=== PATIENT | female | born 1970 | race Caucasian/White ===

== ENCOUNTER 2019-03-25 10:19 | Observation (INO) | payer OTHER ==
--- NOTE | 2019-03-25 05:52 | PDGENHP ---
History and Physical History and Physical: Assessment and Plan: 1. Endometriosis of pelvic peritoneum Tuyet has symptoms of persistent endometriosis. 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 We reviewed all conservative and surgical options. She is extremely tired of how this is controlled her life. At the end of our discussion she wishes to schedule surgical intervention. This will be a robotic hysterectomy with excision of all lesions of endometriosis. I would not be surprised if she has persistent disease on the right ovary given the photos of her right endometrioma. We discussed the pros and cons of removing her remaining ovary. She understands my earliest availability in [place] would be March and in [place] is May. She will return for a preoperative appointment. 2. Pelvic pain 3. Intramural leiomyoma of uterus Subjective: Patient ID: Tuyet Pathak is a 48 y.o. female who presents to [facility] [place] for endometriosis. HOLLAND Benz is a 48-year-old 0 woman who lives in [place]. She has a long history of endometriosis dating back to age 23 when she had her first laparoscopy. Her last surgery was in 2012 while living in [place]. She had her left tube and ovary removed. She thinks some endometriosis was ablated. She has operative photos which shows endometriosis concentrated mostly in the posterior cul-de-sac overlying the distal rectum and both uterosacral ligaments. She does have some in the anterior cul-de-sac as well as a right endometrioma. There were no photos taken after surgery that I can see. She also underwent an endometrial ablation at that time. Since then she has had almost daily pain which is a dull pelvic ache with occasional sharp pains in the left lower quadrant and rectum. She uses a heating pad and Tylenol for the pain. She has occasional dyschezia but no real dyspareunia. She has known uterine fibroids with 2 dominant fibroids measuring about 3-4 cm. She had a severe bout of pain in June and went to the emergency department where she underwent an ultrasound and CT scan. Her flow has been irregular since then. She has no hot flashes. She is extremely tired of the pain as it greatly interferes with the quality of her life. PastMedicalHistory Past Medical History: Diagnosis Date Allergy to pollen Anxiety Arthritis 2007 First noted in x-ray of foot Common migraine without aura Depression Mallory-Danlos syndrome, type 3 Endometriosis Eosinophilic esophagitis Esophageal reflux Fibromyalgia Fibromyalgia Lumbago Meniere disease Neutrophilic leukocytosis Varicella PastSurgicalHistory Past Surgical History: Procedure Laterality Date COLONOSCOPY 07/2015 ENDOMETRIAL ABLATION 2013 LAPAROSCOPY x3 OVARY REMOVAL Left SINUS SURGERY 04/2016 TONSILLECTOMY UPPER GASTROINTESTINAL ENDOSCOPY 07/2015 WISDOM TOOTH EXTRACTION CURRENT MEDICATIONS: Current Outpatient Medications Medication Sig acetaminophen (TYLENOL) 325 mg tablet Take 650 mg by mouth 3 times daily as needed. DULoxetine (CYMBALTA) [address] capsule TAKE 1 CAPSULE BY MOUTH EVERY DAY HYDROcodone-acetaminophen (NORCO) 5-325 mg Take 1 tablet by mouth every 6 hours as needed for Pain. This med has acetaminophen (APAP). promethazine (PHENERGAN) 25 mg tablet Take 1 tablet by mouth every 6 hours as needed. triamterene-hydrochlorothiazide 37.5-25 mg per capsule No current facility-administered medications for this visit. ALLERGIES: Prednisone; Erythromycin; and Zofran [ondansetron hcl (pf)] I have reviewed, verified and agree with the past medical, surgical, , family, social and ROS history as documented by the RN today. Objective: Vital Signs: Visit Vitals BP 104/68 Pulse 90 Temp 36.5 C (97.7 F) (Temporal) Resp 16 Ht 1.613 m (5' 3.5") Wt 79.4 kg (175 lb) SpO2 99% BMI 30.51 kg/m Physical Exam Gen: This is an alert, well developed woman in no distress. Neuro: She moves all extremities. Psych: She is appropriate, oriented, with normal affect. Neck: No thyroid enlargement, adenopathy, or tenderness. Lungs: Clear to ascultation, no wheezes or rales. Heart: Regular rate and rhythm without obvious murmurs. Abdomen: Soft, non-tender, without guarding, rebound, or masses. Extremities: No edema or cyanosis. Pelvic: Normal external genitalia. Non-gaping introitus, vagina without discharge, adequately estrogenized, no significant prolapse. Cervix without lesions or discharge. Adnexa tender without enlargement. Uterus is enlarged consistent with about a 14-week sized uterus. It extends laterally. She has an approximately 5 mm nodule in the posterior cul-de-sac which is is exquisitely tender. Both uterosacral ligaments are quite tender as well as the anterior and posterior cervix and uterus. DATA: I have reviewed the pertinent medical records. TIME/COMMUNICATION: I personally spent a total of 60 minutes. Of that 50 minutes was counseling/ coordination of patient's care. See my note above for details. Eugene Archibald MD Board Certified Female Pelvic Medicine and Reconstructive Surgery Director of Minimally Invasive Gynecologic Surgery, [facility] Surgeon in Minimally Invasive Gynecologic Surgery [facility] Surgeon in Robotic Surgery
--- NOTE | 2019-03-25 10:49 | PDANEPAE ---
ANE History of Present Illness Total abdominal hysterectomy with endometriosis ablation ANE Past Medical History - Cardiovascular History Hx Hypertension: No Hx Arrhythmias: No Hx Chest Pain: No Hx Coronary Artery / Peripheral Vascular Disease: No Hx CHF / Valvular Disease: No Hx Palpitations: No Cardiovascular History Comment: BP runs low. triamterene not for BP issues, meniere's disease. small mitral prolapse - Pulmonary History Hx COPD: No Hx Asthma/Reactive Airway Disease: No Hx Recent Upper Respiratory Infection: No Hx Oxygen in Use at Home: No Hx Sleep Apnea: No Sleep Apnea Screening Result - Last Documented: Negative - Neurologic History Hx Cerebrovascular Accident: No Hx Seizures: No Hx Dementia: No - Endocrine History Hx Diabetes: No - Renal History Hx Renal Disorders: No - Liver History Hx Hepatic Disorders: No - Neurological & Psychiatric Hx Hx Neurological and Psychiatric Disorders: No Neurological / Psychiatric History Comment: numb area behind right leg. depression/anxiety - Cancer History Hx Cancer: No - Congenital Disorder History Hx Congenital Disorders: Yes Congenital History Comment: sarah morrell - GI History Hx Gastrointestinal Disorders: Yes Gastrointestinal History Comment: acid reflux/gerd. esophagitis - Other Health History Other Health History: meniere's disease. right arm scab. low ferritin levels IV infusions 07/19. bruises easily - Chronic Pain History Chronic Pain: Yes (lower back legs) - Surgical History Prior Surgeries: lap endometrosis 2013. 2 prior endometriosis lap sx 1999/ 1992. 2015 sinus sx ANE Review of Systems Review of systems is: negative Review of Systems: - Exercise capacity METS (RN): 4 METS ANE Patient History - Allergies Allergies/Adverse Reactions: erythromycin base Allergy (Verified 03/10/19 11:24) Vomiting fluconazole [From Diflucan] Allergy (Verified 03/10/19 11:24) Vomiting NSAIDS (Non-Steroidal Anti-Inflamma Allergy (Verified 03/10/19 11:22) GI UPSET ondansetron Allergy (Verified 03/11/19 15:01) Other-Enter Comments - Home Medications Home medications: home medication list seen and reviewed Home Medications: Acetaminophen [Tylenol ES 500 mg (*)] 1,000 mg PO DAILY PRN 03/10/19 [Last Taken Unknown] DULoxetine [Cymbalta 60 MG (*)] 60 mg PO DAILY 03/10/19 [Last Taken Unknown] Herbals/Supplements -Info Only 1 ea PO DAILY 03/10/19 [Last Taken Unknown] Multivitamins [Multivitamin (*)] 3 each PO DAILY 03/10/19 [Last Taken Unknown] Triamterene/Hydrochlorothiazid [Triamterene-Hctz 37.5-25 mg Tb] 1 each PO DAILY 03/10/19 [Last Taken Unknown] - NPO status NPO Status: no food or drink >8 hours - Anes Hx Anes Hx: no prior problems - Smoking Hx Smoking Status: Never smoked - Family Anes Hx Family Anes Hx: none Family Hx Anesthesia Complications: grandmother with same issues ANE Labs/Vital Signs - Vital Signs Vital Signs: reviewed preoperatively; see RN documention for details Height: 160.02 cm Weight: 78.471 kg ANE Physical Exam - Airway Neck exam: FROM Mallampati Score: Class 2 Mouth exam: normal dental/mouth exam - Pulmonary Pulmonary: no respiratory distress - Cardiovascular Cardiovascular: regular rate and rhythym - ASA Status ASA Status: II ANE Anesthesia Plan Anesthesia Plan: general endotracheal anesthesia
[2019-03-25] MEDS ORDERED: ceFAZolin 2 GM/DEXTROSE 100 ML IV ONE (10:55)
[2019-03-25] MEDS ORDERED: LR 1,000 ML IV ONE (10:55)
[2019-03-25] MEDS ORDERED: GABAPENTIN 300 MG CAP PO ONE (10:55)
[2019-03-25] MEDS ORDERED: PHENAZOPYRIDINE HCL 200 MG TAB PO ONE (10:55)
[2019-03-25] MEDS ORDERED: ACETAMINOPHEN 500 MG TAB PO ONE (10:55)
[2019-03-25] MEDS ORDERED: LIDOCAINE 1% 2 ML INJ ID PRN (11:00)
--- NOTE | 2019-03-25 11:55 | PDHPUP ---
History & Physical Update H&P update statement: This history and physical update is based on an assessment of the patient which was completed after admission or registration (within 24 hours), but prior to the surgery/procedure. H&P update: H&P reviewed & patient examined, no change in patient's condition since H&P completed
[2019-03-25] MEDS ORDERED: SCOPOLAMINE HYDROBROMIDE 1 MG/3 DAYS PATCH TD SCH (12:00)
[2019-03-25] MEDS ORDERED: fentaNYL 250 MCG/5 ML INJ ONE (12:35)
[2019-03-25] MEDS ORDERED: LIDOCAINE 2% 100 MG/5 ML SYR ONE (12:35)
[2019-03-25] MEDS ORDERED: ONDANSETRON 4 MG/2 ML VIAL ONE (12:35)
[2019-03-25] MEDS ORDERED: ROCURONIUM 50 MG/5 ML VIAL ONE (12:35)
[2019-03-25] MEDS ORDERED: DEXAMETHASONE 4 MG/ML VIAL ONE ×2 (12:35→12:39)
[2019-03-25] MEDS ORDERED: PROPOFOL 200 MG/20 ML VIAL ONE ×3 (12:35→13:41)
[2019-03-25] MEDS ORDERED: BUPIVACAINE/EPI 0.5% 30 ML SDV ONE (12:36)
[2019-03-25] MEDS ORDERED: MEPERIDINE 25 MG/0.5 ML AMP IVP PRN (13:25)
[2019-03-25] MEDS ORDERED: HYDROCODONE/APAP 5/325 TAB PO PRN (13:25)
[2019-03-25] MEDS ORDERED: oxyCODONE IR 5 MG TAB PO PRN (13:25)
[2019-03-25] MEDS ORDERED: PROMETHAZINE HCL 25 MG/ML INJ IVP PRN (13:25)
[2019-03-25] MEDS ORDERED: NALOXONE HCL 0.4 MG/ML INJ IVP PRN (13:25)
[2019-03-25] MEDS ORDERED: PROMETHAZINE HCL 25 MG/ML INJ ONE (13:28)
[2019-03-25] MEDS ORDERED: SUGAMMADEX SODIUM 200 MG/2 ML VIAL IVP ONE (14:03)
--- NOTE | 2019-03-25 14:05 | POSTOPPROG ---
Post Op Note Date of Operation: 03/25/19 Surgeon: Eugene Archibald Hr Associate: Lynnette Kat Anesthesiologist: Babatunde Anesthesia: GET(General Endotracheal) Pre-op Diagnosis: Endometriosis, fibroids, menorrhagia Post-op Diagnosis: Same Procedure: Robotic hyst/RSO, encise endo, bilat ureterolyis Findings: No bladder or ureteral injury seen Inf/Abcess present in the surg proc area at time of surgery?: No EBL: Minimal Complications: None
[2019-03-25] MEDS ORDERED: OXYCODONE/APAP 5/325 TAB PO PRN (14:06)
[2019-03-25] MEDS ORDERED: HYDROmorphONE/DILAUDID 1 MG/ML INJ IVP PRN (14:06)
[2019-03-25] MEDS ORDERED: ONDANSETRON DISINTEGRATING 4 MG TAB PO PRN (14:07)
[2019-03-25] MEDS ORDERED: ONDANSETRON 4 MG/2 ML VIAL IVP PRN (14:07)
[2019-03-25] MEDS ORDERED: HYDROmorphONE/DILAUDID 1 MG/ML INJ ONE (14:21)
[2019-03-25] MEDS: fentaNYL 100 MCG/2 ML INJ IVP PRN ×2 (14:21→14:29)
[2019-03-25] MEDS ORDERED: fentaNYL 100 MCG/2 ML INJ ONE (14:21)
[2019-03-25] MEDS: HYDROmorphONE/DILAUDID 1 MG/ML INJ IVP PRN ×3 (14:27→15:05)
[2019-03-25] MEDS ORDERED: LR 1,000 ML IV SCH (14:30)
[2019-03-25] MEDS ORDERED: DIAZEPAM 10 MG/2 ML SYR ONE (15:03)
[2019-03-25] MEDS ORDERED: DIAZEPAM 10 MG/2 ML SYR IVP PRN (15:04)
[2019-03-25] MEDS: GABAPENTIN 100 MG CAP PO SCH (17:06)
--- NOTE | 2019-03-25 18:48 | GOP ---
[f rep st] OPERATIVE REPORT DATE OF OPERATION: 03/25/2019 SURGEON: Eugene Archibald MD PAPER RECLAIMING MACHINE OPERATOR: Lynnette Kat CFA. ANESTHESIA: General. PREOPERATIVE DIAGNOSIS: 1. Menorrhagia. 2. Dysmenorrhea. 3. Uterine fibroids. 4. Endometriosis. 5. Uterine prolapse. 6. Urinary frequency and urgency. POSTOPERATIVE DIAGNOSIS: 1. Menorrhagia. 2. Dysmenorrhea. 3. Uterine fibroids. 4. Endometriosis. 5. Uterine prolapse. 6. Urinary frequency and urgency. PROCEDURE PERFORMED: 1. Robotic-assisted total laparoscopic hysterectomy, right salpingo-oophorectomy. 2. Excision of endometriosis in anterior and posterior cul-de-sac, bilateral pelvic side mackey. 3. Bilateral ureterolysis. 4. Uterosacral ligament colpopexy. 5. Cystoscopy. FINDINGS: Within the upper abdomen. The diaphragms, liver, gallbladder, stomach and upper abdominal bowel were unremarkable. There was no evidence of endometriosis. Within the pelvis, there was endo metriosis in both the anterior and posterior cul-de-sacs, both pelvic sidewalls, as well as the right ovary. The uterus was enlarged with uterine fibroids. SPECIMENS: 1. Uterus, right tube and ovary. 1. Pelvic peritoneum with endometriosis. 2. ESTIMATED BLOOD LOSS: Scant. DESCRIPTION OF PROCEDURE: The patient was taken to the operating room. She was identified. General anesthesia was administered and found to be adequate. She was placed in the lithotomy position and prepared and draped in normal sterile fashion. A Ritter catheter was placed in her bladder. A VCare uterine manipulator was placed into the endometrial cavity and sutured to the cervix. An 8 mm infraumbilical incision was made with a scalpel. The Veress needle with the CO2 gas flowing was advanced into the peritoneal cavity. The abdomen was then insufflated with carbon dioxide gas. The 8 mm trocar followed by the laparoscope were then inserted. Two lateral ports placed in the righ t, 1 in the left under direct visualization. The anterior cul-de-sac was completely excised. The posterior cul-de-sac from the distal rectum up t o the cervix and laterally to the uterosacral ligaments was then completely excised. A bilateral ure terolysis was required given the endometriosis overlying both ureters. The peritoneum at the pelvic brims were incised. The ureters were gently dissected free and lateralized off the overlying periton eum and endometriosis from the pelvic brim all the way down to the bladder. Once this was accomplish ed, the entire pelvic sidewall peritoneum was completely excised. The anterior lip of the broad liga ment was incised across the cervix. The left uterine vasculature was then cauterized and transected medial to the left ureter. The right round ligament was divided. The anterior leaf of the broad lig ament was incised toward the bifurcation of right common iliac vessels. A window was created in the posterior leaf to skeletonize the infundibulopelvic vessels. They were then cauterized and transecte d. The right uterine vasculature was then cauterized and transected. The uterus was partially bival terry to aid in removal through the vagina. A circumferential colpotomy incision was then made with e hot ryan and all specimens were removed through the vagina. The vaginal cuff was closed with a running suture of 0 V-Loc 180. A bilateral uterosacral ligament c olpopexy was performed by attaching the lateral aspects of the vaginal cuff to the ipsilateral uteros acral ligaments near the coccygeal-sacrospinous ligament complexes. The pelvis was then irrigated wi sterile saline and hemostasis was present. The robot was then undocked. The skin was closed with 4-0 Monocryl. Cystoscopy was then performed. Both ureters had vigorous jets of urine. There was n o evidence of bladder, nor urethral injury seen. No sutures were seen within the bladder, nor urethr a. No obvious pathology was seen to account for the patient's urinary frequency and urgency other th an her peritoneal endometriosis on the bladder. Anesthesia was then reversed. The patient was taken to PACU awake, in stable condition. COMPLICATIONS: None. DISPOSITION: Patient stable to PACU. /[id number]/MODL
[2019-03-25] MEDS: HYDROCODONE/APAP 5/325 TAB PO PRN (19:14)
[2019-03-25] MEDS: KETOROLAC 30 MG/1 ML SDV IVP SCH (20:02)
[2019-03-26] MEDS: SIMETHICONE 80 MG TAB CHEW PO SCH ×2 (00:41→08:16)
[2019-03-26] MEDS: HYDROCODONE/APAP 5/325 TAB PO PRN ×2 (00:41→05:16)
[2019-03-26] MEDS: GABAPENTIN 100 MG CAP PO SCH ×2 (01:50→08:18)
[2019-03-26] MEDS: KETOROLAC 30 MG/1 ML SDV IVP SCH ×3 (01:50→12:07)
[2019-03-26] MEDS: DOCUSATE SODIUM 100 MG CAP PO SCH ×2 (02:04→08:16)
[2019-03-26 05:45] LABS: PLATELET COUNT 324 10^3/uL (150-400)
[2019-03-26 08:19] VITALS: BP 96/62
[2019-03-26] MEDS ORDERED: TRIAMTERENE/HCTZ 37.5/25 1 EACH TAB PO SCH (09:00)
--- NOTE | 2019-03-26 10:15 | GDS ---
[f rep st] DISCHARGE SUMMARY DISCHARGE DIAGNOSES: 1. Menorrhagia. 2. Dysmenorrhea. 3. Uterine fibroid. 4. Endometriosis. 5. Uterine prolapse. PROCEDURES: 1. Robotic-assisted total laparoscopic hysterectomy, right salpingo-oophorectomy. 2. Excision of endometriosis. 3. Bilateral ureterolysis. 4. Uterosacral ligament colpopexy. 5. Cystoscopy. HOSPITAL COURSE: The patient has a long history of heavy painful menses from uterine fibroids and en dometriosis. She was taken to the operating room on 03/25/2019, where she underwent the above-mentio neha procedures without complications. Her postoperative course was uneventful. The morning after surgery, she was ambulating, voiding, and tolerating a general diet. She is discharged home on postoperative day #1 in good condition. Medic ations, included Toradol and [place] for pain, Phenergan for nausea, and estradiol for hormone replacem ent. She is to follow up in the office 2 weeks after discharge. /[id number]/MODL
[2019-03-28] MEDS ORDERED: PATCH REMOVAL 1 EA PATCH TD SCH (11:58)
== END 2019-03-26 11:55 | disposition home or self-care (01) ==
LOC: F3N 10:19 → EDBD 12:00 → FOB 15:45
PROVIDERS: ADMIT Obstetrics & Gynecology; ATTEND Obstetrics & Gynecology
PROC: 0UT94ZZ Resection of Uterus, Percutaneous Endoscopic Approach (ICD-10-PCS; principal; 2019-03-25 12:00)
PROC: 0USG4ZZ Reposition Vagina, Percutaneous Endoscopic Approach (ICD-10-PCS; principal; 2019-03-25 12:00)
PROC: 0UT04ZZ Resection of Right Ovary, Percutaneous Endoscopic Approach (ICD-10-PCS; principal; 2019-03-25 12:00)
PROC: 8E0W4CZ Robotic Assisted Procedure of Trunk Region, Percutaneous Endoscopic Approach (ICD-10-PCS; principal; 2019-03-25 12:00)
PROC: 0UT54ZZ Resection of Right Fallopian Tube, Percutaneous Endoscopic Approach (ICD-10-PCS; principal; 2019-03-25 12:00)
PROC: 0UBF4ZZ Excision of Cul-de-sac, Percutaneous Endoscopic Approach (ICD-10-PCS; principal; 2019-03-25 12:00)
PROC: 0TJ98ZZ Inspection of Ureter, Via Natural or Artificial Opening Endoscopic (ICD-10-PCS; principal; 2019-03-25 12:00)
DX: D25.1 Intramural leiomyoma of uterus (principal); N80.0 Endometriosis of uterus; N80.3 Endometriosis of pelvic peritoneum; N92.0 Excessive and frequent menstruation with regular cycle; N94.5 Secondary dysmenorrhea; N81.2 Incomplete uterovaginal prolapse; R35.0 Frequency of micturition; R39.15 Urgency of urination
CPT/HCPCS: 57425; 58571; 58662; G0378; J0690; J1100; J1170; J1885; J2001; J2405; J2550; J2704; J3010; J3360